=== PATIENT | female | born 1960 | race Caucasian/White ===

== ENCOUNTER → 2021-01-29 | Outpatient (CLI) | payer MEDICARE ==
[~2021-01-29] MED LIST: CETIRIZINE HCL10 MG PO; COZAAR50 MG PO; CRESTOR20 MG PO; EFFEXOR XR150 MG PO; HYDROCODON-ACE1 EAC4 PO; NEXIUM20 MG PO; STOOL SOFTENER100 M1 PO; VITAMIN D21250 MCG PO
== END ==
LOC: KOH-I 10:30
DX: Z01.818 Encounter for other preprocedural examination (principal); S82.001A Unspecified fracture of right patella, initial encounter for closed fracture
CPT/HCPCS: 73700

== ENCOUNTER → 2021-02-02 | Day surgery (SDC) | payer MEDICARE ==
[~2021-02-02] VITALS: Ht 154.9 cm; Wt 81.6 kg
[~2021-02-02] MED LIST changes: +HYDROCODON-ACE1 EAC6 PO; +LOVENOX40 MG/0.4 SQ
[2021-02-02 06:23] LABS: HEMOGLOBIN 13.3 gm/dl (12.3-15.3); RED BLOOD COUNT 4.75 M/UL (4.00-5.10); WHITE BLOOD COUNT 6.3 K/UL (4.5-11.0)
[2021-02-02 06:37] LABS: BUN/CREATININE RATIO 18 (0-10)
== END | disposition home or self-care (01) ==
LOC: OR 05:36
PROVIDERS: Orthopaedic Surgery
DX: S82.041A Displaced comminuted fracture of right patella, initial encounter for closed fracture (principal); I10 Essential (primary) hypertension; E78.00 Pure hypercholesterolemia, unspecified; M19.90 Unspecified osteoarthritis, unspecified site; F41.9 Anxiety disorder, unspecified; K21.9 Gastro-esophageal reflux disease without esophagitis; Z91.010 Allergy to peanuts; Z79.891 Long term (current) use of opiate analgesic; Z79.899 Other long term (current) drug therapy; W01.198A Fall on same level from slipping, tripping and stumbling with subsequent striking against other object, initial encounter
CPT/HCPCS: 73562; 76000; 80048; 85025; C1713; J0690; J1100; J1170; J2001; J2250; J2405; J2704; J2710; J2795; J3010; J7120